=== PATIENT | male | born 1990 | race Caucasian/White ===

== ENCOUNTER 2018-02-07 23:44 | Emergency (ER) | payer OTHER ==
[2018-02-08 01:07] LABS: Absolute Lymphocytes (CBC) 2.5 K/uL (0.7-4.9); Absolute Neutrophil 5.7 K/uL (1.8-8.0); Basophils % 0.6 % (0-1.3); Eosinophils % 4.5 % (0-4.4); Hematocrit 36.2 % (39.6-49.0); Lymphocytes % 25.4 % (15.3-44.8); MCH 29.1 pg (27.0-35.0); MCV 84.9 fL (80-100); MPV 8.1 fL (7.6-11.3); Monocytes % 10.3 % (3.3-12.3); RBC Red Blood Cell Count 4.26 M/uL (4.33-5.43)
[2018-02-08 01:16] LABS: Bicarbonate 26 mEq/L (21-31); Glucose Level 105 mg/dL (65-120); Potassium 3.6 mEq/L (3.6-5.0); Sodium Level 138 mEq/L (135-145)
[2018-02-08 01:17] LABS: BUN Blood Urea Nitrogen 13 mg/dL (6-20)
[2018-02-08] MEDS ORDERED: MORPHINE 4 MG/ML SYR ONE (01:36)
[2018-02-08] MEDS ORDERED: ONDANSETRON 4 MG/2 ML VIAL ONE ×2 (01:36→02:27)
[2018-02-08] MEDS ORDERED: NA CHLORIDE 0.9% 2,000 ML ONE (01:36)
[2018-02-08] MEDS ORDERED: MEPERIDINE HCL 50 MG/ML AMP ONE (02:27)
[2018-02-08] MEDS ORDERED: SILVER NITRATE 1 APPL TOP ONE (02:41)
--- NOTE | 2018-02-08 04:42 | CON ---
Date of Consultation: 02/08/2018 Reason: Bleeding pilonidal wound. History Of Present Illness: The patient is a 27-year-old male, who had approximately 11 days ago a p ilonidal cystectomy done. He had 1 episode of bleeding prior, which stopped with pressure. The brendon ent's family contacted with Dr. Trevino, who had done the surgery and was advised that pressure shou ld stop it and it did. Tonight, the patient was taking a shower and then changed the bandage and had continued bleeding, came to the emergency room. His heart rate was in 140, blood pressure is 90. W ith fluid, his heart rate normalized as his blood pressure. The wound was examined by the ER staff. There was some oozing noted. Pressure dressing was applied, however, continued to bleed. An attemp t was made to contact the initial primary care physician. We cannot reach it. So, they called me. I came immediately and examined the wound. There was oozing on the left side of the wound in the inf erior aspect of the wound and silver nitrate was cauterized. Then, the bleeding has stopped. We are monitoring it right now, and if his H and H remained stable and his vitals remain stable, he can be discharged. Review of Systems: Otherwise, unremarkable. Past Medical History: Negative. Past Surgical History: Pilonidal cystectomy. Allergies: NO ALLERGIES. Social History: He does not smoke. Drinks occasionally. Family History: Significant for fibromyalgia. Physical Examination: Vital Signs: Currently, his heart rate and blood pressure are within normal limits. Head and Neck: No masses. Chest: Clear. Heart: S1, S2. Abdomen: Soft. Extremities: Neurovascularly intact. Neuro: Nonfocal. Pilonidal was examined. It is a fairly large wound approximately 10 x 6 cm, approximately 4 to 5 cm deep. There is good granulation tissue. There was oozing noted on the left lateral mid wound aspect in the inferior part of the wound and there was minimal oozing noted in the inferior aspect of the w ound. Subsequently, under clean conditions, silver nitrate was utilized to stop the bleeding, and th en, wound was monitored for several minutes and no further bleeding was noted. Wet-to-dry normal radha ine dressing was applied. Assessment And Plan: Pilonidal wound bleeding. Recommendation: Continue the pressure dressing. Monitor H and H. Monitor the patient in the emerge ncy room for at least an hour or 2. Currently, dressing remains dry. He can be discharged home. Fo trista with Dr. Trevino should his H and H drop or his vitals decompensate. Obviously, he needs to be admitted for further intervention and observation. The plan of care discussed with the OR staff. CANDIDO/CHRIS Voice ID: [id number] Report ID: [id number]
--- NOTE | 2018-02-08 05:15 | EDPHYS ---
Physician Documentation [facility] Name: Josias Nina Age: 27 yrs Sex: Male : 1990 Arrival Date: 02/07/2018 Time: 23:49 Bed 13 Private MD: ED Physician Fermín Palomo HPI: 02/08 00:52 This 27 yrs old Male presents to ER via Ambulatory with complaints of Post snw Surgical Bleeding. 00:52 Patient presents to ED for recheck of: recent surgical site at pilonidal area. Previous snw treatment: The patient was initially treated 2 weeks ago. Progress: The patient reports significant bleeding. bleeding with q dressing change x 1 week, sudden significant bleeding since 2099. as noted. Historical: - Allergies: 00:13 No Known Allergies; ao - Home Meds: 00:13 Hydrocodone-Acetaminophen Oral [Active]; ao - PMHx: 00:13 None; ao - PSHx: 00:13 Surgery in the Sacrum; ao - Immunization history:: Adult Immunizations up to date. - Social history:: Smoking status: Patient/guardian denies using tobacco, Patient uses alcohol, weekly. Patient/guardian denies using street drugs, but used to use street drugs. ROS: 00:52 Constitutional: Negative for fever, chills, and weight loss, Eyes: Negative for injury, snw pain, redness, and discharge, ENT: Negative for injury, pain, and discharge, Neck: Negative for injury, pain, and swelling, Cardiovascular: Negative for chest pain, palpitations, and edema, Respiratory: Negative for shortness of breath, cough, wheezing, and pleuritic chest pain, Abdomen/GI: Negative for abdominal pain, nausea, vomiting, diarrhea, and constipation, : Negative for injury, bleeding, discharge, and swelling, MS/Extremity: Negative for injury and deformity, Skin: Negative for injury, rash, and discoloration, Neuro: Negative for headache, weakness, numbness, tingling, and seizure. 00:52 Back: Positive for significant post surgical bleeding at pilonidal area. Exam: 00:48 Constitutional: This is a well developed, well nourished patient who is awake, alert, snw and in no acute distress. Head/Face: Normocephalic, atraumatic. Eyes: Pupils equal round and reactive to light, extra-ocular motions intact. Lids and lashes normal. Conjunctiva and sclera are non-icteric and not injected. Cornea within normal limits. Periorbital areas with no swelling, redness, or edema. ENT: Nares patent. No nasal discharge, no septal abnormalities noted. Tympanic membranes are normal and external auditory canals are clear. Oropharynx with no redness, swelling, or masses, exudates, or evidence of obstruction, uvula midline. Mucous membranes moist. Neck: Trachea midline, no thyromegaly or masses palpated, and no cervical lymphadenopathy. Supple, full range of motion without nuchal rigidity, or vertebral point tenderness. No Meningismus. Chest/axilla: Normal chest wall appearance and motion. Nontender with no deformity. No lesions are appreciated. 00:48 Respiratory: Lungs have equal breath sounds bilaterally, clear to auscultation and percussion. No rales, rhonchi or wheezes noted. No increased work of breathing, no retractions or nasal flaring. Abdomen/GI: Soft, non-tender, with normal bowel sounds. No distension or tympany. No guarding or rebound. No evidence of tenderness throughout. Skin: Warm, dry with normal turgor. Normal color with no rashes, no lesions, and no evidence of cellulitis. MS/ Extremity: Pulses equal, no cyanosis. Neurovascular intact. Full, normal range of motion. Neuro: Awake and alert, GCS 15, oriented to person, place, time, and situation. Cranial nerves II-XII grossly intact. Motor strength 5/5 in all extremities. Sensory grossly intact. Cerebellar exam normal. Normal gait. 00:48 Cardiovascular: Rate: tachycardic, Rhythm: regular, Pulses: no pulse deficits are appreciated. 00:48 Back: pilonidal cyst removed 2 weeks ago. Bleeding with each dressing change x 1 week. Pt's Spouse changed dressing today and within 30 min the bleeding soaked thru his packing, underwear and shorts, down both legs and into shoes. On arrival to pt's room, I removed the bloody clothing and the packing, dukes bleeding noted. Wound packed with 2 pkgs of Surgicel and rolled up 4x4s. Will reassess.. Vital Signs: 00:14 BP 114 / 72; Pulse 141; Resp 20; Temp 97.8; Pulse Ox 98% on R/A; Weight 92.99 kg; ao Height 6 ft. 4 in. (193.04 cm) (R); Pain 0/10; 01:37 BP 120 / 67; Pulse 70; Resp 16; Pulse Ox 97% on R/A; Pain 0/10; aa1 00:14 Body Mass Index 24.95 (92.99 kg, 193.04 cm) ao MDM: 00:37 Patient medically screened. snw 00:48 Data reviewed: vital signs, nurses notes. snw 01:59 Physician consultation: Billy Trevino MD was called at 01:59, regarding consult, snw patient's condition, need to come to ED to see patient. 02/08 00:48 Order name: CBC with Diff snw 02/08 00:48 Order name: TS snw 02/08 00:48 Order name: Chem 7 snw 02/08 01:16 Order name: Basic Metabolic Panel; Complete Time: 01:17 EDMS 02/08 01:17 Order name: CBC with Automated Diff; Complete Time: 01:17 EDMS 02/08 01:26 Order name: ABO/RH no charge; Complete Time: 01:27 EDMS 02/08 00:48 Order name: Wound dressing; Complete Time: 01:15 snw Administered Medications: 01:32 Drug: morphine 4 mg Route: IVP; Site: left hand; aa1 01:32 Drug: Zofran 4 mg Route: IVP; Site: left hand; aa1 01:32 Drug: NS 0.9% 1000 ml Route: IV; Rate: 1 bolus; Site: left hand; aa1 01:33 Drug: NS 0.9% 1000 ml Route: IV; Rate: 1 bolus; Site: left hand; aa1 Disposition: 02/08/18 05:00 Discharged to Home. Impression: post surgical bleeding. - Condition is Stable. - Medication Reconciliation Form, Thank You Letter, Antibiotic Education, Prescription Opioid Use form. Addendum: 02/10/2018 07:06 Co-signature as Attending Physician, Fermín Palomo MD I agree with the assessment and w a plan of care. Signatures: Dispatcher [facility] [employer] [facility] Susana Vazquez RN RN aa1 Sandi Arroyo, TMR TEACHER-C TMR TEACHER-Csnw Chretien, LillianaLISA hernandez RN, Alex, RN RN ao Appiah, William, MD MD wa
--- NOTE | 2018-02-08 05:15 | ER ---
Nurse's Notes [facility] Name: Josias Nina Age: 27 yrs Sex: Male : 1990 Arrival Date: 02/07/2018 Time: 23:49 Bed 13 Private MD: Diagnosis: post surgical bleeding Presentation: 02/08 00:06 Presenting complaint: Patient states: "I had Surgery with Dr Trevino about two week ao ago and today the incision started to bleed." Incision is in the Sacrum and bleeding look mild. Patient denies fever. Patient denies pain when standing. Transition of care: patient was not received from another setting of care. Onset of symptoms is unknown. Care prior to arrival: None. 00:06 Method Of Arrival: Ambulatory ao 00:06 Acuity: HUMBLE 3 ao Triage Assessment: 00:16 General: Appears in no apparent distress. uncomfortable, Behavior is appropriate for ao age. Pain: Denies pain. Historical: - Allergies: 00:13 No Known Allergies; ao - Home Meds: 00:13 Hydrocodone-Acetaminophen Oral [Active]; ao - PMHx: 00:13 None; ao - PSHx: 00:13 Surgery in the Sacrum; ao - Immunization history:: Adult Immunizations up to date. - Social history:: Smoking status: Patient/guardian denies using tobacco, Patient uses alcohol, weekly. Patient/guardian denies using street drugs, but used to use street drugs. Screenin:35 Abuse screen: Denies threats or abuse. Denies injuries from another. Nutritional aa1 screening: No deficits noted. Tuberculosis screening: No symptoms or risk factors identified. Fall Risk None identified. Assessment: 00:35 General: Appears in no apparent distress. comfortable, Behavior is calm, cooperative, aa1 appropriate for age. Pain: Complains of pain in coccyx and gluteal cleft. Neuro: Level of Consciousness is awake, alert, obeys commands, Oriented to person, place, time, situation, Moves all extremities. Full function Gait is steady. Cardiovascular: Heart tones S1 S2 present Rhythm is regular. Respiratory: Airway is patent Respiratory effort is even, unlabored, Respiratory pattern is regular, symmetrical. GI: No signs and/or symptoms were reported involving the gastrointestinal system. : No signs and/or symptoms were reported regarding the genitourinary system. EENT: No signs and/or symptoms were reported regarding the EENT system. Derm: Skin is intact, is healthy with good turgor, Skin is pink, warm \\T\\ dry. incision to sacrum from pilonidal cyst removal with moderate amount of bleeding noted. No redness or odor noted at this time. Wound packed and bleeding controlled with bandage+. Musculoskeletal: Circulation, motion, and sensation intact. Capillary refill < 3 seconds. Vital Signs: 00:14 BP 114 / 72; Pulse 141; Resp 20; Temp 97.8; Pulse Ox 98% on R/A; Weight 92.99 kg; ao Height 6 ft. 4 in. (193.04 cm) (R); Pain 0/10; 01:37 BP 120 / 67; Pulse 70; Resp 16; Pulse Ox 97% on R/A; Pain 0/10; aa1 00:14 Body Mass Index 24.95 (92.99 kg, 193.04 cm) ao ED Course: 02/07 23:49 Patient arrived in ED. do 02/08 00:12 Triage completed. ao 00:12 Arm band placed on right wrist. Patient notified of wait time. ao 00:31 Susana Sanchez, LISA is Primary Nurse. aa1 00:35 Patient has correct armband on for positive identification. Placed in gown. Bed in low aa1 position. Call light in reach. Pulse ox on. NIBP on. Warm blanket given. Pillow given. 00:36 Sandi Arroyo FNP-C [facility]. snw 00:36 Fermín Palomo MD is Attending Physician. snw 00:50 Initial lab(s) drawn, by me, sent to lab. T\\T\\S collected, blood band applied to patient. fc Inserted saline lock: 20 gauge in left hand, using aseptic technique. 03:43 No provider procedures requiring assistance completed. IV discontinued, intact, fc bleeding controlled, No redness/swelling at site. Pressure dressing applied. Administered Medications: :32 Drug: morphine 4 mg Route: IVP; Site: left hand; aa11 17:32 Drug: Zofran 4 mg Route: IVP; Site: left hand; aa1 01:32 Drug: NS 0.9% 1000 ml Route: IV; Rate: 1 bolus; Site: left hand; aa1 01:33 Drug: NS 0.9% 1000 ml Route: IV; Rate: 1 bolus; Site: left hand; aa1 Outcome: 03:43 Discharged to home ambulatory, with family. 03:43 Condition: good 03:43 Discharge instructions given to patient, family, Instructed on discharge instructions, follow up and referral plans. wound care, Demonstrated understanding of instructions, follow-up care, wound care, Prescriptions given X none 05:00 Discharge ordered by MD. 05:00 Patient left the ED. Signatures: Susana Sancehz RN RN aa1 Sandi Arroyo, VP [employer]-C VP [employer] Lilliana Burgos RN LISA Andrew Santamaria RN Jessica Donnelly do Corrections: (The following items were deleted from the chart) 00:12 00:06 Presenting complaint: Patient states: "I had Surgery with Dr Trevino for two ao week ago and today the incision started to bleed." Incision is in the Sacrum and bleeding in mild. Patient denies fever. Patient denies pain when standing. ao
[2018-02-08 05:23] LABS: Hematocrit 34.1 % (39.6-49.0)
== END 2018-02-08 05:00 | disposition home or self-care (01) ==
LOC: ER 23:44
DX: L76.22 Postprocedural hemorrhage of skin and subcutaneous tissue following other procedure (principal); Y83.8 Other surgical procedures as the cause of abnormal reaction of the patient, or of later complication, without mention of misadventure at the time of the procedure
CPT/HCPCS: 36415; 80048; 85014; 85018; 85025; 86850; 86900; 86901; 96374; 96375; 99284; J2175; J2405; J7030